=== PATIENT | female | born 1950 | race Caucasian/White ===

== ENCOUNTER 2018-08-23 10:32 | Day surgery (SDC) | payer MEDICARE, OTHER ==
[2018-08-23] MEDS ORDERED: LIDOCAINE 2% (SDV) 5 ML INJ (11:13)
[2018-08-23] MEDS ORDERED: PROPOFOL 40 ML (11:13)
== END 2018-08-23 15:06 | disposition home or self-care (01) ==
LOC: GIL 10:32
DX: K29.70 Gastritis, unspecified, without bleeding (principal)
CPT/HCPCS: 43239; 88305; 88312